=== PATIENT | female | born 1945 | race Caucasian/White ===

== ENCOUNTER 2021-11-15 19:08 | Emergency (ER) | payer OTHER, MEDICAID ==
[~2021-11-15] VITALS: Ht 160 cm; Wt 68.0 kg
[~2021-11-15 19:08] MED LIST: AUGMENTIN 875-1 EACH PO; CHOLESTEROL TAB; LEVOTHYROXINE PO; PRAVACHOL40 MG PO; SERTRALINE PO
[2021-11-15 21:30] VITALS: BP 132/48
== END 2021-11-15 21:30 | disposition home or self-care (01) ==
LOC: M.ERS 19:08
DX: S92.325A Nondisplaced fracture of second metatarsal bone, left foot, initial encounter for closed fracture (principal); E78.00 Pure hypercholesterolemia, unspecified; E03.9 Hypothyroidism, unspecified; Z79.899 Other long term (current) drug therapy; Z88.8 Allergy status to other drugs, medicaments and biological substances; W11.XXXA Fall on and from ladder, initial encounter; Y93.89 Activity, other specified; Y92.89 Other specified places as the place of occurrence of the external cause; Y99.8 Other external cause status